=== PATIENT | female | born 1965 | race Caucasian/White ===

== ENCOUNTER 2016-06-18 15:17 | Emergency (ER) | payer BC ==
[2016-06-18 17:19] VITALS: BP 156/96
--- NOTE | 2016-06-18 17:38 | UC ---
Respiratory Complaint HPI - HPI Summary HPI Summary: 1 week of worsening cough, congestion, sinus and nasal pain - History of Current Complaint Chief Complaint: UCGeneralIllness Stated Complaint: UPPER RESPIRATORY Time Seen by Provider: 06/18/16 17:19 Hx Obtained From: Patient Hx Last Menstrual Period: 2010 ?: No Onset/Duration: Gradual Onset, Lasting Weeks - 1, Worse Since - past 2 days Timing: Constant Severity Initially: Mild Severity Currently: Moderate Pain Intensity: 5 Pain Scale Used: 0-10 Numeric Character: Cough: Productive Aggravating Factors: Deep Breaths Alleviating Factors: Nothing - has been using Mucinex with out relief Associated Signs And Symptoms: Positive: Chills, Pleuritic Chest Pain, URI, Nasal Congestion, Sinus Discomfort - Allergies/Home Medications Allergies/Adverse Reactions: Allergies Allergy/AdvReac Type Severity Reaction Status Date / Time Benzonatate [From Tessalon] Allergy Vomiting Verified 06/18/16 17:07 environment Allergy See Comment Uncoded 06/18/16 17:07 PMH/Surg Hx/FS Hx/Imm Hx Previously Healthy: No Cardiovascular History Of: Reports: Hypertension - Surgical History Surgical History: Yes Surgery Procedure, Year, and Place: tonsils as child; neck waggoner infection; hysterectomy; R carpal tunnel; - Family History Known Family History: Positive: Unknown - Social History Occupation: Employed Full-time Lives: With Family Alcohol Use: Occasionally Substance Use Type: None Smoking Status (MU): Heavy Every Day Tobacco Smoker Type: Cigarettes Amount Used/How Often: 1/ PPD Have You Smoked in the Last Year: Yes Cessation Counseling: Counseled 3+Min - 10 Min - Immunization History Most Recent Influenza Vaccination: no Review of Systems Constitutional: Fatigue Skin: Negative Eyes: Negative ENT: Nasal Discharge Respiratory: Cough Cardiovascular: Chest Pain - pleurtic/bronchial Gastrointestinal: Negative Genitourinary: Negative Motor: Negative Neurovascular: Negative Musculoskeletal: Negative Neurological: Negative Psychological: Negative All Other Systems Reviewed And Are Negative: Yes Physical Exam Triage Information Reviewed: Yes Appearance: No Pain Distress, Well-Nourished, Ill-Appearing - mild Vital Signs: Initial Vital Signs Temp 99.4 F 06/18/16 17:11 Pulse 76 06/18/16 17:11 Resp 16 06/18/16 17:11 BP 156/96 06/18/16 17:11 Pulse Ox 99 06/18/16 17:11 Vital Signs Reviewed: Yes Eye Exam: Normal Eyes: Positive: Conjunctiva Clear ENT Exam: Normal ENT: Positive: Normal ENT inspection, Hearing grossly normal, Pharynx normal, Nasal congestion, Nasal drainage. Negative: Tonsillar swelling, Tonsillar exudate, Trismus, Muffled/hoarse voice Neck exam: Normal Neck: Positive: Supple, Nontender, No Lymphadenopathy Respiratory Exam: Normal Respiratory: Positive: Chest non-tender, Lungs clear, Normal breath sounds, No respiratory distress, No accessory muscle use Cardiovascular Exam: Normal Cardiovascular: Positive: RRR, No Murmur, Pulses Normal, Brisk Capillary Refill Musculoskeletal Exam: Normal Musculoskeletal: Positive: Strength Intact, ROM Intact, No Edema Neurological Exam: Normal Neurological: Positive: Alert, Muscle Tone Normal, Fatigued Psychological Exam: Normal Skin Exam: Normal UC Diagnostic Evaluation - Laboratory O2 Sat by Pulse Oximetry: 99 Respiratory Course/Dx - Course Course Of Treatment: ALbuterol, zithromax, robitussin and codiene, increase fluids, smoking cesasation information follow with pcp - Differential Dx/Diagnosis Differential Diagnosis/HQI/PQRI: Asthma, Bronchitis, Influenza, Laryngitis Provider Diagnoses: Nicotine dependant, Bronchitis Discharge - Discharge Plan Condition: Stable Disposition: HOME Prescriptions: Albuterol HFA INHALER* [Ventolin HFA Inhaler*] 2 puff INH Q4H PRN #1 mdi PRN Reason: cough/chest tighness Azithromycin TAB* [Zithromax TAB (Z-EVETTE) 250 mg #6 tabs] 2 tab PO .TODAY, THEN 1 DAILY #1 evette guaiFENesin/CODIEN 100MG-10MG* [Robitussin AC 100Mg-10Mg*] 5 - 10 ml PO Q4H PRN #120 udc MDD 40 PRN Reason: cough Patient Education Materials: How to Stop Smoking (ED), Cigarette Smoking and Your Health (GEN), How to Use a Metered-Dose Inhaler (ED), Acute Bronchitis (ED) Referrals: Sonal Oneill PA [Primary Care Provider] - If Needed
== END 2016-06-18 17:56 | disposition home or self-care (01) ==
LOC: UCCORT 15:17
DX: J40 Bronchitis, not specified as acute or chronic (principal); F17.210 Nicotine dependence, cigarettes, uncomplicated; Z88.8 Allergy status to other drugs, medicaments and biological substances
CPT/HCPCS: 99212; G0463

== ENCOUNTER 2016-07-17 18:18 | Emergency (ER) | payer BC ==
--- NOTE | 2016-07-17 18:40 | UC ---
Cardiac HPI - History of Current Complaint Stated Complaint: TIGHTNESS IN CHEST Hx Obtained From: Patient Onset/Duration: Sudden Onset - burning chest pain, Gradual Onset - on chest pressure in the last several days., Lasting Hours - 1, Worse Since - onset Initial Severity: Worse Since: - this afternoon Current Severity: Moderate Chest Pain Location: Upper Sternal Character: Tightness, Burning Aggravating: Nothing Alleviating: Nothing Associated Signs & Symptoms: Positive: Headaches - sinus headache, Nausea/ Vomiting - nausea with no vomiting, Cough, Back Pain - chest pain radiating to the back. Negative: SOB, Abdominal Pain - Risk Factors Cardiac Risk Factors: Hypertension, Smoking, Family History TAD Risk Factors: Smoking AMI/ACS Risk Factors: Obesity, Family History, Smoking - Allergy/Home Medications Allergies/Adverse Reactions: Allergies Allergy/AdvReac Type Severity Reaction Status Date / Time Benzonatate [From Tessalon] Allergy Vomiting Verified 07/17/16 18:35 environment Allergy See Comment Uncoded 07/17/16 18:35 PMH/Surg Hx/FS Hx/Imm Hx Cardiovascular History Of: Reports: Hypertension Psychological History Of: Reports: Anxiety - Surgical History Surgical History: Yes Surgery Procedure, Year, and Place: tonsils as child; neck waggoner infection; hysterectomy; R carpal tunnel; - Family History Known Family History: Positive: Cardiac Disease, Hypertension Negative: Diabetes - Social History Occupation: Employed Full-time Lives: Alone Alcohol Use: Occasionally Substance Use Type: None Smoking Status (MU): Light Every Day Tobacco Smoker Type: Cigarettes Amount Used/How Often: 1 CIG PER DAY Length of Time of Smoking/Using Tobacco: 20-30 YRS. Have You Smoked in the Last Year: Yes - Immunization History Most Recent Influenza Vaccination: no Review of Systems Constitutional: Fever, Fatigue ENT: Nasal Discharge Respiratory: Cough Cardiovascular: Chest Pain Neurological: Headache - sinus headache Psychological: Anxious All Other Systems Reviewed And Are Negative: Yes Physical Exam Triage Information Reviewed: Yes Appearance: Well-Appearing, No Pain Distress, Obese Vital Signs: Initial Vital Signs Temp 99.2 F 07/17/16 18:21 Pulse 92 07/17/16 18:21 Resp 18 07/17/16 18:21 BP 157/89 07/17/16 18:21 Pulse Ox 96 07/17/16 18:21 Vital Signs Reviewed: Yes Eyes: Positive: Conjunctiva Clear ENT: Positive: Pharynx normal, TMs normal Neck exam: Normal Respiratory Exam: Normal Cardiovascular: Positive: RRR, Murmur:Sys:Grade _?_/ - 2 Abdomen Description: Positive: Nontender, Soft Musculoskeletal Exam: Normal Neurological Exam: Normal Psychological Exam: Normal Skin Exam: Normal - Differential Diagnoses - Chest Pain Differential Diagnosis/HQI/PQRI: Acute PA, Aortic Aneurysm, Chest Wall - Clinical Impression Provider Diagnoses: Chest pain, non-specific. Hypertension - Physician Notifications Discussed Patient Care With: Christy Aguilar NP Time Discussed With Above Provider: 18:57 Instructed by Provider To: Transfer - To PSYCHIATRIC Discharge - Discharge Plan Condition: Guarded Disposition: TRANS HIGHER LVL OF CARE FAC
[2016-07-17 19:03] VITALS: BP 179/93
== END 2016-07-17 19:25 | disposition short-term general hospital (02) ==
LOC: UCCORT 18:18
DX: R07.89 Other chest pain (principal); I10 Essential (primary) hypertension; F17.210 Nicotine dependence, cigarettes, uncomplicated
CPT/HCPCS: 93005; 99213; G0463

== ENCOUNTER 2018-07-03 13:07 | Emergency (ER) | payer BC ==
[2018-07-03 14:00] VITALS: BP 135/75
[2018-07-03] MEDS ORDERED: Tetracaine 0.5% OPTH.SOL 15ML* BTL LEFT EYE ONE (14:07)
[2018-07-03] MEDS ORDERED: Fluorescein Sodium TOPICAL* 1 MG TEST STRIP OPHTHALMIC ONE (14:08)
[2018-07-03] MEDS ORDERED: Tetracaine 0.5% OPTH.SOL 4 ML* 1 DROP BTL ONE (14:10)
--- NOTE | 2018-07-03 14:22 | UC ---
Eye Complaint HPI - HPI Summary HPI Summary: right eye pain x 1 day woke up this morning with right eye pain and tearing no eye injury , + blurry vision, mild photophobia no fever, - History of Current Complaint Chief Complaint: UCEye Stated Complaint: RIGHT EYE CONCERN Time Seen by Provider: 07/03/18 13:53 Hx Obtained From: Patient Hx Last Menstrual Period: 2010 Onset/Duration: Gradual Onset, Lasting Days - 1, Still Present Timing: Constant Severity Initially: Severe Severity Currently: Severe Pain Intensity: 10 Location of Injury: Sclera Character: Foreign Body Sensation Aggravating Factor(s): Light, Blinking Alleviating Factor(s): Nothing Associated Signs And Symptoms: Positive: Photophobia, Drainage (Clear), Vision Impairment Right. Negative: Drainage (Purulent) - Allergies/Home Medications Allergies/Adverse Reactions: Allergies Allergy/AdvReac Type Severity Reaction Status Date / Time benzonatate Allergy GI Upset Verified 07/03/18 13:52 [From [facility]] Home Medications: Home Medications amLODIPine TAB* [Norvasc 5 mg TAB*] 1 tab QAM 07/03/18 [History Confirmed ] PMH/Surg Hx/FS Hx/Imm Hx Cardiovascular History: Hypertension - Surgical History Surgical History: Yes Surgery Procedure, Year, and Place: tonsils as child; neck waggoner infection; hysterectomy; R carpal tunnel; - Family History Known Family History: Positive: Unknown, Cardiac Disease, Hypertension Negative: Diabetes - Social History Alcohol Use: Occasionally Substance Use Type: None Smoking Status (MU): Heavy Every Day Tobacco Smoker Type: Cigarettes Amount Used/How Often: 1/2 PPD Length of Time of Smoking/Using Tobacco: 20-30 YRS. Have You Smoked in the Last Year: Yes - Immunization History Most Recent Influenza Vaccination: no Review of Systems All Other Systems Reviewed And Are Negative: Yes Constitutional: Positive: Negative Skin: Positive: Negative Eyes: Positive: Blurred Vision, Drainage, Eye Redness, Photophobia ENT: Positive: Negative Respiratory: Positive: Negative Cardiovascular: Positive: Negative Is Patient Immunocompromised?: No Physical Exam Triage Information Reviewed: Yes Appearance: Well-Nourished, Pain Distress Vital Signs: Initial Vital Signs Temp 99.5 F 07/03/18 13:54 Pulse 81 07/03/18 13:54 Resp 17 07/03/18 13:54 BP 135/75 07/03/18 13:54 Pulse Ox 99 07/03/18 13:54 Vital Signs Reviewed: Yes Eye Exam: Normal Eyes: Positive: Conjunctiva Inflamed, Discharge - clear discharge, Other: - corneal abrasion right cornea , ENT: Positive: Normal ENT inspection, Hearing grossly normal, Pharynx normal Neck exam: Normal Neck: Positive: Supple, Nontender, No Lymphadenopathy Respiratory: Positive: Chest non-tender, Lungs clear, Normal breath sounds Cardiovascular: Positive: RRR, No Murmur, Pulses Normal Eye Complaint Course/Dx - Differential Dx/Diagnosis Provider Diagnosis: Corneal abrasion, Blurry vision, right eye Discharge - Sign-Out/Discharge Documenting (check all that apply): Patient Departure All imaging exams completed and their final reports reviewed: No Studies - Discharge Plan Condition: Stable Disposition: HOME Prescriptions: Erythromycin OPTH OINT* [Erythromycin 0.5% OPTH OINT*] 1 applic RIGHT EYE QID # 1 tube Patient Education Materials: Corneal Abrasion (ED) Referrals: Ruth Strickland MD [Medical Doctor] - 1 Day Sonal Oneill PA [Primary Care Provider] - - Billing Disposition and Condition Condition: STABLE Disposition: Home
== END 2018-07-03 14:32 | disposition home or self-care (01) ==
LOC: UCCORT 13:07
DX: S05.01XA Injury of conjunctiva and corneal abrasion without foreign body, right eye, initial encounter (principal); H53.8 Other visual disturbances; I10 Essential (primary) hypertension; F17.210 Nicotine dependence, cigarettes, uncomplicated; Z79.899 Other long term (current) drug therapy; Z88.8 Allergy status to other drugs, medicaments and biological substances; X58.XXXA Exposure to other specified factors, initial encounter; Y92.9 Unspecified place or not applicable
CPT/HCPCS: 99212; A9270-GY; G0463